=== PATIENT | male | born 1960 | race Caucasian/White ===

== ENCOUNTER 2022-05-05 17:00 | Observation (INO) | payer BC, OTHER, SELFPAY ==
[2022-05-05] VITALS (20 sets, daily range): BP systolic 121–156; BP diastolic 61–85; PULSE 63–86; RESP 14–20; TEMP 36.4–43; O2SAT 91–98; BMI 31.6; BMI 32.5
--- NOTE | 2022-05-05 17:13 | HMH.EDABDPAI ---
Discharge Plan Disposition Patient Disposition: Admitted As Inpatient Condition: Good Chief Complaint: Abdominal Pain Prescriptions Prescriptions: No Action lisinopril-hydrochlorothiazide 1 EACH Tablet 1 tab PO DAILY amlodipine-atorvastatin 1 EACH Tablet 1 ea PO DAILY Referrals Follow up/Referrals: Hussein Harris MD [Primary Care Provider] - See instructions Clinical Impressions Clinical Impression: Acute appendicitis Instructions Patient Instructions: DI for Acute Abdominal Pain Discharge ED Provider: Diego Silverio Abdominal Pain HPI General Chief Complaint: Abdominal Pain Stated Complaint: lower right abd pain Time Seen by Provider: 05/05/22 17:13 Mode of Arrival: Ambulatory Source of Information: Patient Limitations: No Limitations Description of Symptoms (Recalled from ER Triage Doc. by RN): PT WITH RLQ PAIN THAT BEGAN THIS AM, NAUSEA. HAD BM THIS AM History of Present Illness HPI narrative: 61-year-old male past medical history of hypertension, hyperlipidemia, presents with chief complaint of abdominal pain in the right lower quadrant for started around 6 AM this morning, has been constant throughout the day. He denies any nausea, vomiting, fever, chills, dysuria. He denies any prior history of kidney stones or any other abdominal issues. There is been no past surgical history. The only exacerbating factor appears to be pressing on the area, there is no palliative factors noted. He has not attempted any treatments prior to this visit. Related Data Home Medications Medication Instructions Recorded Confirmed amlodipine 5 mg-atorvastatin 40 mg 1 ea PO DAILY Cholesterol 08/14/18 08/14/18 tablet lisinopril 20 1 tab PO DAILY bp 08/14/18 08/14/18 mg-hydrochlorothiazide 12.5 mg tablet Allergies Allergy/AdvReac Type Severity Reaction Status Date / Time No Known Allergies Allergy Verified 08/18/18 07:13 [facility] Medical History Hyperlipidemia Hypertension Family History Other No significant family history Social History Smoking Status: Never smoker alcohol intake: never current occupational status: employed Travel in the last 8 weeks: None caffeine: Yes ROS Obtained: Yes Systems reviewed as appropriate & no additional complaints except as documented Constitutional Constitutional: Reports system reviewed and no additional complaints, except as documented Eyes Eyes: Reports system reviewed and no additional complaints, except as documented ENT Ears, Nose, Mouth, and Throat: Reports system reviewed and no additional complaints, except as documented Cardiovascular Cardiovascular: Reports system reviewed and no additional complaints, except as documented Respiratory Respiratory: Reports system reviewed and no additional complaints, except as documented Gastrointestinal Gastrointestingal: Reports abdominal pain (Right lower quadrant) Genitourinary Male Genitourinary: Reports system reviewed and no additional complaints, except as documented Musculoskeletal Musculoskeletal: Reports system reviewed and no additional complaints, except as documented Integumentary/Breasts Skin/Breast: Reports system reviewed and no additional complaints, except as documented Neurologic Neurologic: Reports system reviewed and no additional complaints, except as documented Physical Exam General General appearance: alert and in no apparent distress Head Head exam: atraumatic, normocephalic and normal inspection Eye Eye exam: Present normal appearance, PERRL and EOMI ENT ENT exam: Present normal exam, normal oropharynx, mucous membranes moist, TM's normal bilaterally and normal external ear exam Neck Neck exam: Present normal inspection, full ROM and trachea midline; Absent meningismus or lymphadenopathy Chest Ches
--- NOTE | 2022-05-05 17:17 | CT_ITS ---
PROCEDURE INFORMATION: Exam: CT Abdomen And Pelvis With Contrast Exam date and time: 05/05/2022 5:49 PM Age: 61 years old Clinical indication: Abdominal pain; Localized; Right lower quadrant (rlq); Additional info: Rlq pain TECHNIQUE: Imaging protocol: Computed tomography of the abdomen and pelvis with contrast. Radiation optimization: All CT scans at this facility use at least one of these dose optimization techniques: automated exposure control; mA and/or kV adjustment per patient size (includes targeted exams where dose is matched to clinical indication); or iterative reconstruction. Contrast material: ISOVUE; Contrast volume: 75 ml; Contrast route: IV; COMPARISON: No relevant prior studies available. FINDINGS: Lungs: Mild scarring and atelectasis in the lower lungs. Diaphragm: Small hiatal hernia. Liver: Hepatic steatosis. Gallbladder and bile ducts: Normal. No calcified stones. No ductal dilation. Pancreas: Normal. No ductal dilation. Spleen: Normal. No splenomegaly. Adrenal glands: Normal. No mass. Kidneys and ureters: Normal. No hydronephrosis. Stomach and bowel: Mild small bowel feces. Appendix: The appendix is obstructed by a calcified appendicolith near its base. The appendix is fluid-filled measuring 11 mm in diameter. There is mild periappendiceal inflammation. Intraperitoneal space: Unremarkable. No free air. No significant fluid collection. Vasculature: Replaced right hepatic artery from the SMA. The arteries demonstrate mild atherosclerotic disease. Lymph nodes: Unremarkable. No enlarged lymph nodes. Urinary bladder: Unremarkable as visualized. Reproductive: Mild prostate enlargement. Bones/joints: The lumbar spine demonstrates mild degenerative changes at multiple levels. Soft tissues: Tiny fat containing umbilical hernia. Other findings: Stigmata of old granulomatous disease. IMPRESSION: 1. Acute appendicitis. No abscess. 2. Hepatic steatosis. 3. THIS REPORT CONTAINS FINDINGS THAT MAY BE CRITICAL TO PATIENT CARE. The findings were verbally communicated via telephone conference with Diego Silverio at 6:24 PM EDT on 05/05/2022. The findings were acknowledged and understood.
--- NOTE | 2022-05-05 17:17 | PC.NURSE ---
1719 ED MD AT BEDSIDE FOR EVALUATION
--- NOTE | 2022-05-05 17:23 | PC.NURSE ---
ROUNDED ON PT, UPDATED ON POC. DENIES NEEDS AT THIS TIME. CALL LIGHT WITHIN REACH
[2022-05-05 17:36] LABS: Basophils # 0.1 K/mm3 (0-0.2); Basophils % 0.4 % (0.1-2.0); Eosinophils # 0.2 K/mm3 (0.0-0.4); Eosinophils % 1.6 % (0.1-12.0); Hematocrit 49.6 % (42.0-52.0); Hemoglobin 15.5 g/dL (14.1-18.0); Lymphocytes # 1.1 K/mm3 (0.7-4.5); Lymphocytes % 8.5 % (10-50); Mean Corpuscular HGB Conc 31.3 g/dL (31.8-35.4); Mean Corpuscular Hemoglobin 30.8 pg (27.0-31.2); Mean Corpuscular Volume 98.3 fl (80-94); Mean Platelet Volume 8.4 fl (7.4-10.4); Monocytes # 0.7 K/mm3 (0.1-1.0); Monocytes % 5.4 % (1.7-9.3); Neutrophils # 11.3 K/mm3 (1.8-7.8); Neutrophils % 84.1 % (37.0-80.0); Platelet Count 316 K/mm3 (142-424); Red Blood Count 5.04 M/mm3 (4.60-6.20); White Blood Count 13.4 K/mm3 (4.8-10.8)
[2022-05-05 17:40] LABS: Alanine Aminotransferase 67 U/L (12-78); Albumin Level 4.2 g/dl (3.5-5.0); Albumin/Globulin Ratio 1.5 (1.1-1.8); Alkaline Phosphatase 71 U/L (38-126); Anion Gap 8.1 mEq/L (5-15); Aspartate Amino Transferase 48 U/L (17-59); Bilirubin,Total 0.8 mg/dl (0.2-1.3); Blood Urea Nitrogen 18 mg/dl (9-20); Calcium 9.5 mg/dl (8.4-10.2); Carbon Dioxide 27 mmol/L (22.0-30.0); Chloride 105 mmol/L (98-107); Creatinine Clearance Estimated 147 mL/min (50-200); Estimated Glomerular Filt Rate 86 ml/min (>60); GFR (African American) 105 ML/MIN (>60); Globulin 2.8 g/dL (1.3-3.2); Glucose 160 mg/dl (74-100); Lipase 74 U/L (23-300); Potassium 4.1 mmoL/L (3.5-5.1); Sodium 136 mmol/L (136-145)
--- NOTE | 2022-05-05 17:48 | PC.NURSE ---
PT TO CT AT THIS TIME
--- NOTE | 2022-05-05 18:08 | PC.NURSE ---
[address] AT THIS TIME
--- NOTE | 2022-05-05 18:23 | PC.NURSE ---
MELISSA on the phone with
--- NOTE | 2022-05-05 18:30 | PC.NURSE ---
has been paged
--- NOTE | 2022-05-05 18:31 | PC.NURSE ---
covid test obtained
--- NOTE | 2022-05-05 18:31 | PC.NURSE ---
on the phone with
[2022-05-05 18:32] LABS: Coronavirus 19, PCR Not Detected (NotDetected); Influenza A, PCR Not Detected (NotDetected); Influenza B, PCR Not Detected (NotDetected)
--- NOTE | 2022-05-05 18:35 | PC.NURSE ---
Dr Herring to come see pt
--- NOTE | 2022-05-05 18:49 | ECG_ITS ---
APPROVED REPORT Exam: Resting ECG HR:63 bpm ECG Measurements Heart Rate 63 AXES WY 140 P 47 QRSd 110 QRS 56 QT 406 T 40 QTc 413 Conclusion SINUS RHYTHM Isolated Q in III Ow NORMAL ECG UNCONFIRMED REPORT Electronically signed by : Hussein Crenshaw MD 05/07/2022 17:20:55
--- NOTE | 2022-05-05 18:49 | PC.NURSE ---
CONSENT SIGNED AT THIS TIME FOR SURGERY
--- NOTE | 2022-05-05 18:54 | PC.NURSE ---
Surgery team paged.
--- NOTE | 2022-05-05 18:58 | PC.NURSE ---
Spoke with David Serna and Bayron.
--- NOTE | 2022-05-05 19:25 | EXP.GEN.HP ---
HPI HPI HPI: Patient is a 61-year-old male with a history of hypertension and hyperlipidemia. He was in his usual state of health until earlier today at which time he developed significant right lower quadrant pain and tenderness. He presented to the emergency department where he was seen and evaluated. He was found to have a leukocytosis. CT scan revealed findings of acute appendicitis with fluid-filled distended appendix. Surgical consultation was obtained. [facility] Medical History Hyperlipidemia Hypertension Family History Other No significant family history Social History Smoking Status: Never smoker alcohol intake: never current occupational status: employed Travel in the last 8 weeks: None caffeine: Yes Review of Systems Review of Systems Review of systems:: pertinent systems reviewed and negative unless documented below *Neurologic Neurologic: Reports system reviewed and no additional complaints, except as documented Meds Home Medications and Allergies Home Medications Medication Instructions Recorded Confirmed Type amlodipine 5 mg-atorvastatin 40 mg 1 ea PO DAILY Cholesterol 08/14/18 08/14/18 History tablet lisinopril 20 1 tab PO DAILY bp 08/14/18 08/14/18 History mg-hydrochlorothiazide 12.5 mg tablet New Prescriptions to Start Prescriptions: Allergies Allergy/AdvReac Type Severity Reaction Status Date / Time No Known Allergies Allergy Verified 08/18/18 07:13 Exam Data for Last 24 hours Vital signs and Labs for Last 24 Hours: Temp Pulse Resp BP Pulse Ox 98.0 F 76 18 145/73 H 98 05/05/22 17:01 05/05/22 18:30 05/05/22 18:30 05/05/22 18:30 05/05/22 18:30 Laboratory Results - last 24 hr 05/05/22 17:18: WBC 13.4 H, RBC 5.04, Hgb 15.5, Hct 49.6, MCV 98.3 H, MCH 30.8, MCHC 31.3 L, RDW 13.0, Plt Count 316, MPV 8.4, Neut % (Auto) 84.1 H, Lymph % (Auto) 8.5 L, [place] % (Auto) 5.4, Eos % (Auto) 1.6, Baso % (Auto) 0.4, Neut # (Auto) 11.3 H, Lymph # (Auto) 1.1, [place] # (Auto) 0.7, Eos # (Auto) 0.2, Baso # (Auto) 0.1 05/05/22 17:18: Sodium 136, Potassium 4.1, Chloride 105, Carbon Dioxide 27, Anion Gap 8.1, BUN 18, Creatinine 0.90, Estimated Creat Clear 147, Estimated GFR 86, Est GFR ( Amer) 105, Glucose 160 H, Calcium 9.5, Total Bilirubin 0.8, AST 48, ALT 67, Alkaline Phosphatase 71, Total Protein 7.0, Albumin 4.2, Globulin 2.8, Albumin/Globulin Ratio 1.5, Lipase 74 05/05/22 18:27: SARS-CoV-2 (PCR) Not detected, Influenza A Untype (PCR) Not detected, Influenza Type B (PCR) Not detected I & O for Last 24 hours: Intake & Output 05/03/22 05/04/22 05/05/22 05/06/22 11:59 11:59 11:59 11:59 Weight 260 lb *Routine HEENT Exam Head: Present normocephalic Eye: Present EOMI ENT: Present mucous membranes moist *Routine Respiratory Exam Respiratory: Present CTA bilaterally *Routine Cardiovascular Exam Cardiovascular: Present RRR *Routine Abdominal Exam Abdominal: Present soft and tenderness Comments: Tender with guarding in the right lower quadrant *Routine Rectal Exam Rectal:: deferred *Routine Genitalia Exam Genitalia:: deferred Results Results Lab Results Last 24 Hours:: Laboratory Results - last 24 hr 05/05/22 17:18: WBC 13.4 H, RBC 5.04, Hgb 15.5, Hct 49.6, MCV 98.3 H, MCH 30.8, MCHC 31.3 L, RDW 13.0, Plt Count 316, MPV 8.4, Neut % (Auto) 84.1 H, Lymph % (Auto) 8.5 L, [place] % (Auto) 5.4, Eos % (Auto) 1.6, Baso % (Auto) 0.4, Neut # (Auto) 11.3 H, Lymph # (Auto) 1.1, [place] # (Auto) 0.7, Eos # (Auto) 0.2, Baso # (Auto) 0.1 05/05/22 17:18: Sodium 136, Potassium 4.1, Chloride 105, Carbon Dioxide 27, Anion Gap 8.1, BUN 18, Creatinine 0.90, Estimated Creat Clear 147, Estimated GFR 86, Est GFR ( Amer) 105, Glucose 160 H, Calcium 9.5, Total Bilirubin 0.8, AST 48, ALT 67, Alkaline Phosphatase
--- NOTE | 2022-05-05 20:14 | P.PN_ITS ---
PFSH PFS Medical History Hyperlipidemia Hypertension Family History Other No significant family history Social History Smoking Status: Never smoker alcohol intake: never substance use type: denies use current occupational status: employed Travel in the last 8 weeks: None caffeine: Yes [facility] Anesthesia Checklist Patient Identification Patient Identification: Arm Band Structural Data Admitted From: Emergency Dept Planned Operative Procedure/s: Laparoscopic Appendectomy Consent for Planned Operative Procedure(s) Verified: Yes Verified Documents: Surgical Consent and History and Physical NPO Status Verified Time NPO: 12:00 Additional verifications Anesthesia Reactions: No Airway Assessment C-Spine Mobility Assessed: Yes (mp2) TMJ Mobility Assessed: Yes Dentition: Good Dentition Neurological Assessment Level of Consciousness: Awake and Alert Anesthesia Plan Anesthesia Risk discussed: Yes Anesthesia Plan: Verified ASA Class: II (E) Anesthesia Type: General
--- NOTE | 2022-05-05 20:39 | EXP.OP.NOTE ---
Date of procedure: 05/05/22 Pre-op Diagnosis:: Acute appendicitis Post-op Diagnosis:: Same Procedure performed:: Laparoscopic appendectomy Surgeon:: Morteza Herring MD [employer]:: Wesly Preston Anesthesia: GETAndres Estimated blood loss (mL): 20 Clinical Note:: Patient is a 61-year-old male. He had developed right lower quadrant abdominal pain several hours prior to presentation to the [facility]. He was evaluated in the ER and had mild leukocytosis. He underwent CT scan which revealed findings of distended fluid-filled appendix consistent with acute appendicitis. Surgical consultation was obtained. Patient was seen and examined and arrangements were made for appendectomy Operative findings:: Patient actually had an acute suppurative appendicitis with some cloudy turbid fluid surrounding the appendix and some fibrinopurulent exudate. There were findings of some peritonitis characterized by erythema and edema of the peritoneum. He had a large amount of visceral fat. Operative note:: Patient was taken to the operating room. He was given preoperative intravenous antibiotics. In the operating room he was placed in a supine position. General anesthesia was induced via endotracheal tube. Nayak catheter was placed. Abdomen was prepped and draped in the standard surgical fashion. Subumbilical skin incision was made. While performing abdominal wall lift Veress needle was inserted. CO2 pneumoperitoneum was achieved to 15 mmHg. 12 mm optical trocar was inserted at the umbilicus. Intraperitoneal contents were visualized. He was found to have some mild small bowel distention consistent with reactive ileus. There was some edema and erythema of the peritoneal lining consistent with relatively established peritonitis. 5 mm trocar was inserted in the suprapubic location. And 5 mm trocar was inserted in the right upper abdomen. 5 mm angled laparoscope was inserted through the right upper abdominal trocar site. Patient was positioned in Trendelenburg and left side down. Appendix was identified in the right lateral pelvis. It was grasped retracted anteriorly. There was a large amount of edema. The appendix was markedly thickened and there was fibrinopurulent suppurative exudate. Mesoappendix was carefully divided with JUJU ultrasonic robotic essie with care taken to coagulate the appendiceal artery in the process. Dissection was carried down to the appendiceal base where the appendix was divided at its base with an endoscopic CUCA linear cutting stapling device. The appendix was placed within an Endo Catch retrieval device and removed from the peritoneal cavity via the umbilical trocar site which required some minor extension of the fascial incision for delivery. Appendiceal stump was then inspected for hemostasis and integrity which was assured. Limited irrigation was carried out of the pericecal location and aspirated until clear. Hemostasis was observed. Trochars were then removed as CO2 pneumoperitoneum was evacuated. Fascia at the umbilicus was closed with several interrupted 0 Vicryl sutures. Local anesthetic was infiltrated. Skin incisions were closed with 4-0 Monocryl in a subcuticular fashion. Steri-Strips and dressings were applied. Condition: stable Disposition: PACU Specimens:: Appendix Complications:: None immediately apparent
--- NOTE | 2022-05-05 20:50 | EXP.ANES.I ---
[facility] Anesthesia Record Part I Anesthesia Record I Intake, IV Amount: 800 Estimated blood loss (mL): 10 Urine output (mL): 300 Blood Pressure: 138/83 SaO2: 91 Pulse Rate: 86 Respiratory Rate: 16 Temperature: 98 F Patient is:: Drowsy and Stable Stable to PACU at:: 20:45
[2022-05-05 20:56] LABS: Microscopic,Cath URINE MICROSCOPIC (MICROSCOPIC)
[2022-05-05 20:57] LABS: Appearance,Urine/Cath CLEAR (Clear); Bilirubin,Cath Negative (Negative); Blood, Urine/Cath Negative (Negative); Color,Urine/Cath YELLOW (Yellow); Glucose,Urine/Cath (UA) Negative (Negative); Ketones,Urine/Cath Negative (Negative); Leukocyte Esterase,Cath Negative (Negative); Nitrate,Cath Negative (Negative); Protein,Urine/Cath Negative (Negative); Urobilinogen,Cath 0.2 EU/dl (0.2)
[2022-05-05 20:59] LABS: Amorphous Sediment,Ur/Cath Trace /lpf; WBC,Urine/Cath Occasional #/hpf (0-3)
--- NOTE | 2022-05-05 21:13 | PC.NURSE ---
PT ARRIVED TO FLOOR VIA BED FROM OR W/STAFF @ 2112
--- NOTE | 2022-05-05 21:19 | SUR.PHASEI ---
2114- detailed report called to regina maldonado on [facility]sur floor. 2115- pt left in stable condition with regina maldonado in pt room 209
[2022-05-06] VITALS (7 sets, daily range): BP systolic 115–143; BP diastolic 57–79; PULSE 65–76; RESP 16–18; TEMP 36.5–36.9; O2SAT 92–97; BMI 31.9
--- NOTE | 2022-05-06 07:27 | PC.NURSE ---
Pt aox4. Pt has not voiced any complaints to staff. 3x dsg to abdomen cdi. Call light within reach
--- NOTE | 2022-05-06 09:27 | P.CONPHA_ITS ---
[facility] Pharmacy VTE Monitoring Patient Demographics Admission date: 05/06/22 Report Date: 05/06/22 Time: 09:27 Patient Allergies No Known Allergies Allergy (Verified 08/18/18 07:13) Height: 1.96 m Weight: 122.787 kg Current Active Problems (Updated 05/05/22 @ 18:36 by Diego Silverio MD) Acute appendicitis (Acute) VTE Risk Labs: VTE Related Lab Results Hgb 15.5 g/dL (14.1-18.0) 05/05/22 17:18 Hct 49.6 % (42.0-52.0) 05/05/22 17:18 Plt Count 316 K/mm3 (142-424) 05/05/22 17:18 BUN 18 mg/dl (9-20) 05/05/22 17:18 Creatinine 0.90 mg/dl (0.66-1.25) 05/05/22 17:18 Estimated Creat Clear 147 mL/min (50-200) 05/05/22 17:18 Clinical Trial Participant: No Prophylaxis VTE Prophylaxis Ordered?: Yes Types of VTE Prophylaxis: TEDS Knee High
--- NOTE | 2022-05-06 09:50 | P.PN_ITS ---
Subjective Patient reports: feels better Narrative: Patient states that he feels much better. Tolerating full liquids. Exam Data for Last 24 hours Vital signs and Labs for Last 24 Hours: Temp Pulse Resp BP Pulse Ox 98.4 F 71 18 123/69 94 L 05/06/22 08:00 05/06/22 08:00 05/06/22 08:00 05/06/22 08:00 05/06/22 08:00 Laboratory Results - last 24 hr 05/05/22 17:18: WBC 13.4 H, RBC 5.04, Hgb 15.5, Hct 49.6, MCV 98.3 H, MCH 30.8, MCHC 31.3 L, RDW 13.0, Plt Count 316, MPV 8.4, Neut % (Auto) 84.1 H, Lymph % (Auto) 8.5 L, [place] % (Auto) 5.4, Eos % (Auto) 1.6, Baso % (Auto) 0.4, Neut # (Auto) 11.3 H, Lymph # (Auto) 1.1, [place] # (Auto) 0.7, Eos # (Auto) 0.2, Baso # (Auto) 0.1 05/05/22 17:18: Sodium 136, Potassium 4.1, Chloride 105, Carbon Dioxide 27, Anion Gap 8.1, BUN 18, Creatinine 0.90, Estimated Creat Clear 147, Estimated GFR 86, Est GFR ( Amer) 105, Glucose 160 H, Calcium 9.5, Total Bilirubin 0.8, AST 48, ALT 67, Alkaline Phosphatase 71, Total Protein 7.0, Albumin 4.2, Globulin 2.8, Albumin/Globulin Ratio 1.5, Lipase 74 05/05/22 18:27: SARS-CoV-2 (PCR) Not detected, Influenza A Untype (PCR) Not detected, Influenza Type B (PCR) Not detected 05/05/22 18:55: Urine Color Yellow, Urine Appearance Clear, Urine pH 6.0, Ur Specific [place] 1.010, Urine Protein Negative, Urine Glucose (UA) Negative, Urine Ketones Negative, Urine Blood Negative, Urine Nitrate Negative, Urine Bilirubin Negative, Urine Urobilinogen 0.2, Ur Leukocyte Esterase Negative, Urine WBC Occasional I & O for Last 24 hours: Intake & Output 05/03/22 05/04/22 05/05/22 09/04/22 11:59 11:59 11:59 11:59 Intake Total 1800 / 1800 Output Total 750 / 750 Balance 1050 / 1050 Weight 270 lb 11.2 oz *Routine Abdominal Exam Abdominal: Present soft Comments: Some serous drainage at the umbilical site. Dressing changed Progress Note: A&P Assessment and plan (1) Acute appendicitis: Status: Acute Assessment and plan: Probable discharge home. Check CBC
--- NOTE | 2022-05-06 09:51 | EXP.DC.SUM ---
General Admission date:: 05/05/22 Discharge date: 05/06/22 HPI HPI HPI: Patient is a 61-year-old male with a history of hypertension and hyperlipidemia. He was in his usual state of health until earlier on 05/05/2022 at which time he developed significant right lower quadrant pain and tenderness. He presented to the emergency department where he was seen and evaluated. He was found to have a leukocytosis. CT scan revealed findings of acute appendicitis with fluid-filled distended appendix. Surgical consultation was obtained. Hospital Course Hospital Course Hospital Course: Patient was seen and examined in the emergency department. Arrangements were made for appendectomy. He was taken to the operating room at which time he underwent laparoscopic appendectomy. He was found to have a significant acutely inflamed suppurative appendicitis. He was admitted for inpatient convalescence and recovery. He was continued on perioperative Unasyn. He remained afebrile. Arrangements were made for discharge home on postoperative day #1. Exam Data for Last 24 hours Vital signs and Labs for Last 24 Hours: Temp Pulse Resp BP Pulse Ox 98.4 F 71 18 123/69 94 L 05/06/22 08:00 05/06/22 08:00 05/06/22 08:00 05/06/22 08:00 05/06/22 08:00 Laboratory Results - last 24 hr 05/05/22 17:18: WBC 13.4 H, RBC 5.04, Hgb 15.5, Hct 49.6, MCV 98.3 H, MCH 30.8, MCHC 31.3 L, RDW 13.0, Plt Count 316, MPV 8.4, Neut % (Auto) 84.1 H, Lymph % (Auto) 8.5 L, [place] % (Auto) 5.4, Eos % (Auto) 1.6, Baso % (Auto) 0.4, Neut # (Auto) 11.3 H, Lymph # (Auto) 1.1, [place] # (Auto) 0.7, Eos # (Auto) 0.2, Baso # (Auto) 0.1 05/05/22 17:18: Sodium 136, Potassium 4.1, Chloride 105, Carbon Dioxide 27, Anion Gap 8.1, BUN 18, Creatinine 0.90, Estimated Creat Clear 147, Estimated GFR 86, Est GFR ( Amer) 105, Glucose 160 H, Calcium 9.5, Total Bilirubin 0.8, AST 48, ALT 67, Alkaline Phosphatase 71, Total Protein 7.0, Albumin 4.2, Globulin 2.8, Albumin/Globulin Ratio 1.5, Lipase 74 05/05/22 18:27: SARS-CoV-2 (PCR) Not detected, Influenza A Untype (PCR) Not detected, Influenza Type B (PCR) Not detected 05/05/22 18:55: Urine Color Yellow, Urine Appearance Clear, Urine pH 6.0, Ur Specific [place] 1.010, Urine Protein Negative, Urine Glucose (UA) Negative, Urine Ketones Negative, Urine Blood Negative, Urine Nitrate Negative, Urine Bilirubin Negative, Urine Urobilinogen 0.2, Ur Leukocyte Esterase Negative, Urine WBC Occasional I & O for Last 24 hours: Intake & Output 05/03/22 05/04/22 05/05/22 05/06/22 11:59 11:59 11:59 11:59 Intake Total 1800 / 1800 Output Total 750 / 750 Balance 1050 / 1050 Weight 270 lb 11.2 oz Results Data Completed and Pending Labs on day of discharge: Labs from last 24 hours 05/05/22 05/05/22 05/05/22 18:55 18:27 17:18 WBC RBC Hgb Hct MCV MCH MCHC RDW Plt Count MPV Neut % (Auto) Lymph % (Auto) [place] % (Auto) Eos % (Auto) Baso % (Auto) Neut # (Auto) Lymph # (Auto) [place] # (Auto) Eos # (Auto) Baso # (Auto) Sodium 136 Potassium 4.1 Chloride 105 Carbon Dioxide 27 Anion Gap 8.1 BUN 18 Creatinine 0.90 Estimated Creat Clear 147 Estimated GFR 86 Est GFR ( Amer) 105 Glucose 160 H Calcium 9.5 Total Bilirubin 0.8 AST 48 ALT 67 Alkaline Phosphatase 71 Total Protein 7.0 Albumin 4.2 Globulin 2.8 Albumin/Globulin Ratio 1.5 Lipase 74 Urine Color Yellow Urine Appearance Clear Urine pH 6.0 Ur Specific [place] 1.010 Urine Protein Negative Urine Glucose (UA) Negative Urine Ketones Negative Urine Blood Negative Urine Nitrate Negative Urine Bilirubin Negative Urine Urobilinogen 0.2 Ur Leukocyte Esterase Negative Urine WBC Occasional SARS-CoV-2 (PCR) Not detected Influenza A Untype (PCR) Not detected Influenza Type B (PCR) Not detected
[2022-05-06 10:39] LABS: Basophils % 0.3 % (0.1-2.0); Eosinophils # 0.1 K/mm3 (0.0-0.4); Eosinophils % 0.9 % (0.1-12.0); Hematocrit 45.2 % (42.0-52.0); Hemoglobin 14.4 g/dL (14.1-18.0); Lymphocytes # 1.1 K/mm3 (0.7-4.5); Lymphocytes % 9.3 % (10-50); Mean Corpuscular HGB Conc 31.9 g/dL (31.8-35.4); Mean Corpuscular Hemoglobin 31.3 pg (27.0-31.2); Mean Corpuscular Volume 98.1 fl (80-94); Mean Platelet Volume 9.1 fl (7.4-10.4); Monocytes # 0.8 K/mm3 (0.1-1.0); Monocytes % 6.3 % (1.7-9.3); Neutrophils # 10.1 K/mm3 (1.8-7.8); Neutrophils % 83.1 % (37.0-80.0); Platelet Count 354 K/mm3 (142-424); Red Cell Distribution Width 13.3 % (11.5-17.5); White Blood Count 12.1 K/mm3 (4.8-10.8)
--- NOTE | 2022-05-06 14:48 | EXP.ANES.II ---
[facility] Anesthesia Record Part II Anesthesia Record Part II Discharge Time: 21:15 Destination: Medical Surgical Department PACU nurse assessment reviewed?: Yes Patient Condition:: Good Anesthesia Complications:: None Swallowing reflex intact?: Yes Cyanosis?: No Blood Pressure: 131/79 Pulse Rate: 76 Temperature: 98 F Mental Status: Alert & Oriented Pain level:: 0 Nausea and/or vomitting:: None Intake, IV Amount: 0
--- NOTE | 2022-05-10 13:23 | CARE MANAGER ---
Attempted to contact patient x3 for discharge follow up. Unable to reach patient.
== END 2022-05-06 13:20 | disposition home or self-care (01) ==
LOC: ER 18:41 → SDC 19:36 → 2ND 19:39
PROVIDERS: Admitting Provider Surgery; Emergency Provider Emergency Medicine; PCP Family Medicine; Visit Provider Surgery
PROC: 0DTJ4ZZ Resection of Appendix, Percutaneous Endoscopic Approach (ICD-10-PCS; CPT 44970; principal; 2022-05-05 19:30)
DX: K35.80 Unspecified acute appendicitis (principal); I10 Essential (primary) hypertension; E78.5 Hyperlipidemia, unspecified
CPT/HCPCS: 44970; 36415; 74177; 80053; 81001; 83690; 85025; 93005; C9803; G0378; J2405; Q9967; U0003; U0005